=== PATIENT | female | born 1960 | race African-American/Black ===

== ENCOUNTER 2016-10-04 03:26 | Observation (INO) | payer BC ==
--- NOTE | ~2016-10-04 | CR72 ---
[facility] A Service of [facility] & [facility] RADIOLOGY TEXT RESULTS PATIENT: BLANCHE DUEÑAS LOCATION: [facility] [id number] : 60 UNIT #: [id number] AGE: [address]: Basil Ny MD SEX: F ORDER DR: [id number] [facility] [address] [place], [place] [address] [id number] MR#: [id number] Acc #: [id number] NAME: BLANCHE DUEÑAS : 1960 SEX: F STUDY DATE/TIME: 10/04/2016 3:49 UNIT: [facility] ROOM: 39972 STUDY DESCRIPTION: CR Chest Single View Portable Attending Physician: Basil Ny M.D. Ordering Physician: Carol Ramires M.D. Primary Care Physician: Nam Lange M.D. MEDICAL IMAGING REPORT This report is preliminary unless electronic signature is present EXAM Portable chest INDICATION Shortness of air tonight. PROCEDURE Frontal view chest. COMPARISON 01/18/2014. FINDINGS Heart size is stable. Ill-defined hazy opacity in the left lung base. No pneumothorax or pleural fluid. IMPRESSION Hazy opacity left lung base could represent atelectasis or developing infiltrate. Dictated by... Jesus Marin M.D. THIS IS AN ELECTRONICALLY VERIFIED REPORT Jesus Marin M.D. at 10/09/2016 2:56 PM ELADIO/henrik TD: 10/04/2016 13:16 JOB #: [id number] MEDICAL IMAGING REPORT Page 1 of 1 COPY
--- NOTE | ~2016-10-04 | ST ---
Unit #: [id number] #: [id number] Patient: BLANCHE DUEÑAS [id number] [address] [address] [id number] I MR#: [id number] NAME: BLANCHE DUEÑAS : 1960 SEX: F STUDY DATE/TIME: 10/04/2016 UNIT: [facility] ROOM: 74941 STUDY DESCRIPTION: Attending Physician: Basil Ny M.D. Primary Care Physician: Nam Lange M.D. CARDIOLOGY REPORT REASON FOR EXAM Chest pain. FINDINGS Baseline EKG shows sinus bradycardia, rate of 57 beats per minute. PROCEDURE The patient exercised on the treadmill according to Romeo protocol for a total of 8 minutes, achieving a work level of 7.4 METs with a resting heart rate of 57 beats per minute and a maximum heart rate of 144 beats per minute. This value represents 87% of the maximum age predicted heart rate. The resting blood pressure was initially 138/86 which rebecca to a maximum blood pressure of 170/88. The patient was unable to exercise into stage 3 secondary to shortness of breath. The stage was held secondary to that reason. IMPRESSION 1. Negative EKG portion of exercise Cardiolite. 2. No ST segment changes suggestive of ischemia. 3. Positive shortness of breath at peak exertion, some mild chest tightness upper chest wall with no ST segment changes. 4. No arrhythmias were noted during the exercise test. 5. Please correlate with nuclear imaging. Dictated by... Ines Salmon/lauren TD: 10/05/2016 08:16 JOB #: [id number] Unit #: [id number] #: [id number] Patient: BLANCHE DUEÑAS CARDIOLOGY REPORT Page 1 of 1 X Soumya River APRN CARDIOLOGY REPORT
--- NOTE | ~2016-10-04 | HP ---
Unit #: [id number] #: [id number] Patient: BLANCHE DUEÑAS [id number] [address] [place], [place] [address] [id number] I MR#: [id number] NAME: BLANCHE DUEÑAS ROOM: [address]171 Age: 56 Sex: F Admission Date: 10/04/2016 : 1960 Attending Physician: Basil Ny M.D. Primary Care Physician: Nam Lange M.D. HISTORY AND PHYSICAL HISTORY OF PRESENT ILLNESS This is a pleasant 56-year-old female with a past medical history of hypertension, diabetes mellitus, hyperlipidemia and a family history of coronary artery disease. She is followed in the office by Dr. Lizarraga. The patient presented to the emergency room after complaints of being awakened from sleep last night secondary to chest heaviness and shortness of breath with radiation down the left arm and associated nausea. She denies any diaphoresis or vomiting. She does repo intermittent palpitations, but denies any syncopal episodes. She reports she did check her blood pressure when she woke up and blood pressure was found to be elevated and she states her chest pressure continued for approximately one hour, which prompted her to come to the emergency room for further evaluation. On arrival to the emergency room the patient was noted to be hypertensive with a blood pressure 145/106. Pulse was noted to be 90 and O2 saturation 99%. She was treated with aspirin, 1 sublingual nitroglycerin and 4 mg of Zofran as well as 40 mg of IV Protonix. The patient does report relief of her pain with sublingual nitroglycerin. At present she is resting in bed. She appears comfortable. She denies any further chest pain. Her EKG shows normal sinus rhythm, rate 73 beats per minute. No acute ST-T wave abnormalities are noted. Initial troponin has been negative. The patient does report a family history of coronary artery disease with myocardial infarction in her brother in his 50s. She did report ischemic workup in 07/2011, when she underwent exercise Cardiolite which was negative at that time. No stress induced ischemia. The patient also had an echocardiogram which showed left ventricular ejection fraction of 55% in 10/2014. There was no valvular abnormality noted at that time. Of note, she has also had a Holter monitor for complaints of palpitations which was uneventful. At this time she is being admitted for observation and will undergo exercise Cardiolite testing. PAST MEDICAL HISTORY 1. Hypertension. 2. Hyperlipidemia. 3. Diabetes mellitus. 4. Gastroesophageal reflux disease. 5. History of peptic ulcer disease. 6. Reformed smoker. 7. Chronic back pain. PAST SURGICAL HISTORY 1. Hysterectomy. 2. Tonsillectomy. Unit #: [id number] #: [id number] Patient: BLANCHE DUEÑAS SOCIAL HISTORY The patient lives at home in a private residence with her . She has grown children. She is a reformed tobacco user and states she quit approximately 30 years ago. She denies any illicit drugs. She reports social use of alcohol. FAMILY HISTORY Brother had endstage renal disease. Also at age 52 secondary to heart issues, believed myocardial infarction. Mom hypertension. Dad colon and prostate cancer. He is . ALLERGIES No known drug allergies. HOME MEDICATIONS 1. Metoprolol tartrate 25 mg p.o. b.i.d. 2. Ibuprofen 800 mg p.o. t.i.d. p.r.n. 3. Levsin 0.375 mg p.o. q.i.d. p.r.n. 4. Simvastatin 40 mg p.o. at nighttime. 5. Metformin 500 mg p.o. b.i.d. 6. Naproxen 500 mg p.o. b.i.d. REVIEW OF SYSTEMS Negative except for what was stated above in history of present illness. PHYSICAL EXAMINATION GENERAL: This is a very pleasant 56-year-old female in no acute distress. She is awake, alert and oriented times three. VITALS: Temperature 98.1, respiratory rate 18-20, pulse 56-60s, blood pressure currently running 111/86, oxygen saturation 97%. NECK: Trachea midline. No thyromegaly or lymphadenopathy. No jugular venous distension. Normal carotid upstrokes. LUNGS: Clear air entry throughout. No rales, rhonchi or wheezing. HEART: S1 and S2. Normal heart sounds. No murmur, gallop or rub. Regular rate and rhythm. ABDOMEN: Soft, nontender and nondistended. No hepatomegaly. EXTREMITIES: Pedal pulses are easily palpable. No clubbing, cyanosis or edema is noted. NEUROLOGIC: She is awake, alert and oriented times three. She follows commands with ease. Moves all extremities equally. DIAGNOSTIC STUDIES IMAGING: Chest x-ray, hazy opacity left lung base. Could represent atelectasis or developing infiltrate. LABORATORY: Initial cardiac enzymes have been negative. Sodium 140, potassium 3.6, chloride 105, CO2 27, BUN 12, creatinine 0.6, glucose 94, magnesium 1.9, TSH 1.80, D-dimer 280, hemoglobin 12.6, hematocrit 40.1, white blood cell count 8.5, platelet count 251, tox screen negative. CARDIOVASCULAR: EKG shows normal sinus rhythm, 73 beats per minute. No ST-T wave abnormalities are noted. ASSESSMENT 1. Chest pain. Rule out acute coronary syndrome. 2. Hypertension. 3. Possible early congestive heart failure. 4. Diabetes mellitus. Unit #: [id number] #: [id number] Patient: BLANCHE DUEÑAS 5. Hyperlipidemia. 6. Reformed tobacco abuse. PLAN Thus far the patient's cardiac enzymes have been negative. Will trend those out. She will have fasting lipid profile today. EKG in the a.m. if the patient is still present in the hospital. She will be started on aspirin 81 mg p.o. daily. Chest x-ray has been reviewed. Will check a BNP and the nurses were notified to call if this was abnormal. Due to the patient's multiple risk factors and her last ischemic workup being approximately five years ago, will plan to repeat exercise Cardiolite today. She will be kept n.p.o. for now. If the patient's exercise Cardiolite study is negative and her BNP is normal, she will be discharged home today with followup with Dr. Lizarraga. Dictated by Soumya River A.P.R.N. for Nicolette Oliveira/gz TD: 10/04/2016 14:19 JOB #: [id number] HISTORY AND PHYSICAL Page 1 of 1 X Soumya River APRN X HISTORY AND PHYSICAL
--- NOTE | ~2016-10-04 | EKG ---
PATIENT: BLANCHE DUEÑAS UNIT #: [id number] Ventricular Rate: 73 BPM Atrial Rate: 73 BPM P-R Interval: 150 ms QRS Duration: 84 ms Q-T Interval: 410 ms QTC Calculation(Bezet): 451 ms P [place]: 36 degrees Calculated R [place]: 41 degrees Calculated T [place]: 18 degrees Diagnosis Line: Normal sinus rhythm Diagnosis Line: Normal ECG Diagnosis Line: No previous ECGs available Diagnosis Line: Confirmed by RYAN AMADOR MD ([id number]) on 10/09/2016 Diagnosis Line: 2:27:59 PM INTERPRETING MD: PERRY CLARK
--- NOTE | ~2016-10-04 | ST ---
Unit #: [id number] #: [id number] Patient: BLNACHE DUEÑAS [id number] [address] [address] [id number] I MR#: [id number] NAME: BLANCHE DUEÑAS : 1960 SEX: F STUDY DATE/TIME: 10/04/2016 UNIT: [facility] ROOM: 64652 STUDY DESCRIPTION: Stress ECG and Imaging Attending Physician: Basil Ny M.D. Primary Care Physician: Nam Lange M.D. CARDIOLOGY REPORT PROCEDURE PERFORMED Stress ECG and Imaging INDICATION Chest tightness, shortness of breath. SUMMARY Patient exercised on a Romeo protocol into stage 2. Patient could not progress to stage 3. Patient completed a modified stage 3, at 2.5 miles per hour, 13.6% grade. Patient completed a total of eight minutes of exercise. Heart rate increased from 57 to 144 (87%) and blood pressure increased from 138/86 to 170/88. ECG is reported separately, but briefly showed nonspecific ST changes, 0.5 mm horizontal to downsloping ST depression in the inferior and lateral leads. Technetium-99m Cardiolite 9.44 and 30.1 mCi was injected at rest and stress respectively. Patient noted shortness of breath, chest tightness during stress. FINDINGS Study is adequate. There is no significant patient motion noted during acquisition of the rest or stress images. There is no significant lung uptake, LV or RV enlargement. There is very mild breast attenuation artifact. Summed stress score is 0. Gated perfusion wall motion analysis demonstrates a small ventricle, end-diastolic volume 40 mL, ejection fraction greater than 65%. Perfusion images demonstrate normal perfusion throughout the myocardium, both at rest and stress with apical thinning present, likely related to breast attenuation artifact. IMPRESSION 1. Myocardial perfusion scan demonstrates no ischemia or infarction. 2. Normal wall motion with excellent ejection fraction. Dictated by... Tawanda Rivera M.D. CONOR/blanka TD: 10/05/2016 13:49 Unit #: [id number] #: [id number] Patient: BLANCHE DUEÑAS JOB #: [id number] CARDIOLOGY REPORT Page 1 of 1 X Tawanda Rivera MD CARDIOLOGY REPORT
[~2016-10-04 03:26] MED LIST: LOVASTATIN20 MG PO
[2016-10-04 04:28] LABS: POC - CKMB <1.0 ng/mL (0.0-7.9); POC - TROPONIN <0.05 ng/mL (<=0.05)
[2016-10-04 05:27] LABS: BASOPHIL% 0.4 % (0-2.5); EOSINOPHIL# 0.2 X10e3 (0-0.7); HEMATOCRIT 40.1 % (35.0-45.0); HEMOGLOBIN 12.6 gm/dL (12.0-16.0); LYMPHOCYTE# 3.1 X10e3 (1.0-3.5); LYMPHOCYTE% 36.8 % (17.0-45.0); MEAN CELL VOLUME 82.9 FL (83-96); MEAN CORPUSCULAR HEMOGLOBIN 26.1 PG (28-34); MEAN CORPUSCULAR HGB CONC 31.5 g/dL (30-36); MONOCYTE# 0.8 X10e3 (0-1.0); MONOCYTE% 8.8 % (3.0-12.0); NEUTROPHIL# 4.4 X10e3 (1.5-7.1); PLATELET COUNT 251 X10e3 (140-420); RED BLOOD COUNT 4.84 X10e (3.90-5.30); RED CELL DISTRIBUTION WIDTH 15.6 % (11.0-15.5); WHITE BLOOD COUNT 8.5 X10e3 (4.0-10.5)
[2016-10-04 05:33] LABS: DIFF IND NO
[2016-10-04 05:41] LABS: INR 1.1; PARTIAL THROMBOPLASTIN TIME 27.2 SECONDS (23.5-31.3); PROTHROMBIN TIME (PATIENT) 11.8 SECONDS (10.0-11.7)
[2016-10-04 06:01] LABS: ALBUMIN SERUM 3.9 g/dL (3.5-5.0); BILIRUBIN, DIRECT 0.1 mg/dL (0.0-0.2); BILIRUBIN,INDIRECT 0.4 mg/dL (0.0-0.9); BILIRUBIN,TOTAL 0.5 mg/dL (0.2-2.0); CREATININE SERUM 0.6 mg/dL (0.6-1.4); GLOM FILT RATE Estimated 118.1 mL/min (>60); MAGNESIUM 1.9 mg/dL (1.6-3.0); POTASSIUM 3.6 mmol/L (3.5-5.1)
[2016-10-04 06:18] LABS: POC - CKMB <1.0 ng/mL (0.0-7.9); POC - TROPONIN <0.05 ng/mL (<=0.05)
[2016-10-04 06:31] LABS: URINE SOURCE CLEAN CATCH
[2016-10-04 06:43] LABS: URINE APPEARANCE CLEAR; URINE BILIRUBIN NEG (NEG); URINE BLOOD NEG (NEG); URINE COLOR YELLOW; URINE GLUCOSE NEG (NEG); URINE KETONE NEG (NEG); URINE LEUKOCYTE ESTERASE NEG (NEG); URINE NITRATE NEG (NEG); URINE PROTEIN NEG (NEG); URINE SPECIFIC GRAVITY 1.013 (1.003-1.035); URINE UROBILINOGEN 0.2 MG/DL (NEG)
[2016-10-04 06:54] LABS: AMPHETAMINE NEG (NEG); BARBITURATES NEG (NEG); BENZODIAZEPINES NEG (NEG); COCAINE NEG (NEG); MARIJUANA NEG (NEG); OPIATES NEG (NEG); TRICYCLIC ANTIDEPRESSANTS NEG (NEG); U METHADONE NEG (NEG)
[2016-10-04] MEDS ORDERED: METOPROLOL TAR25 MG PO (07:24)
[2016-10-04] MEDS ORDERED: IBUPROFEN800 MG PO (07:25)
[2016-10-04] MEDS ORDERED: LEVSIN PO (07:26)
[2016-10-04] MEDS ORDERED: SIMVASTATIN40 MG PO (07:26)
[2016-10-04] MEDS ORDERED: NAPROSYN500 MG PO (07:27)
[2016-10-04] MEDS ORDERED: METFORMIN HCL500 M1 PO (07:27)
[2016-10-04] MEDS ORDERED: PATIENT'S PHARMACY (07:28)
[2016-10-04 07:35] LABS: CULTURE INDICATED? NO
[2016-10-04 13:04] LABS: %MB 1.9 % (0.0-4.0); MB 1.3 ng/ml
== END 2016-10-04 15:18 | disposition home or self-care (01) | DRG 313 ==
LOC: CED 03:26 → CEDOF 09:00 → CED 09:35 → CEDOF 15:18
PROVIDERS: Internal Medicine Cardiovascular Disease; Student in an Organized Health Care Education/Training Program
DX: R07.9 Chest pain, unspecified (principal); I10 Essential (primary) hypertension; E11.9 Type 2 diabetes mellitus without complications; Z87.891 Personal history of nicotine dependence; Z79.899 Other long term (current) drug therapy
CPT/HCPCS: 36415; 71010; 78452; 80048; 80061; 80076; 80307; 81003; 82550; 82553; 83690; 83735; 83880; 84443; 84484; 85025; 85379; 85610; 85730; 93005; 93017; 93306; 96374; 96375; 99285; A9500; C9113; G0378; J2405